=== PATIENT | male | born 1990 | race Caucasian/White ===

== ENCOUNTER 2022-11-25 08:55 | Outpatient (OUT) | payer OTHER, SELFPAY ==
--- NOTE | 2022-11-25 09:01 | US_ITS ---
The [address] [address] Patient Name: SUGAR BUSTAMANTE MRN: [id number] date: 1990 Sex: M Assigned Patient Location: US Current Patient Location: US Accession/Order Number: [id number] Exam Date: 11/25/2022 09:02 Report Date: 11/25/2022 10:09 At the request of: ADITI SON Procedure: US right upper quadrant EXAM: US right upper quadrant EXAM DATE: 11/25/2022 7:02 AM MDT COMPARISON: None available. INDICATION: Right upper quadrant pain R10.11 TECHNIQUE: Limited ultrasound of the right upper quadrant of abdomen was performed. Images were reviewed on a separate workstation. FINDINGS: Liver parenchyma is homogeneous. No focal intraparenchymal abnormality detected. Gallbladder is normally distended. No shadowing stones are seen. There is layering gallbladder sludge. No gallbladder wall thickening or pericholecystic fluid noted. Gallbladder wall measures 1 mm. Sonographic Li's sign is absent. No intrahepatic or extrahepatic biliary ductal dilatation noted. CBD measures 2 mm. Portal vein is patent with hepatopetal flow. Pancreas is partially obscured by bowel gas; visualized pancreatic parenchyma is homogeneous. Right kidney measures 11.3 x 5.7 x 6.3 cm. No hydronephrosis or nephrolithiasis noted. No free fluid noted in the right upper abdomen. US/US right upper quadrant IMPRESSION: 1. Layering gallbladder sludge. No secondary sonographic features of acute cholecystitis. Sonographic Li's sign is absent. 2. Right kidney without hydronephrosis. 3. Subvisualized pancreas. Electronically authenticated by: CLARA CAPONE Date: 11/25/2022 10:09
== END 2022-11-25 08:56 | disposition home or self-care (01) ==
PROVIDERS: PCP Family Medicine; Visit Provider Family Medicine
DX: R10.11 Right upper quadrant pain (principal)
CPT/HCPCS: 76705

== ENCOUNTER 2024-03-22 07:40 | Outpatient (OUT) | payer OTHER, SELFPAY ==
--- OUTSIDE RECORDS SUMMARY | 2024-03-22 07:42 | XMS_ITS | CCD ---
Author Organization [facility] CliniSyla Care Team Providers Care Employee Relations Administrator Name Role Phone SCOTTY, DR PENNINGTON Admitting Unavailable YRISY, DR PENNINGTON Attending Unavailable HOY, DR PENNINGTON Primary Care Unavailable HOY, DR PENNINGTON Admitting Unavailable HOY, DR PENNINGTON Attending Unavailable HOY, DR PENNINGTON Primary Care Unavailable HOY, DR PENNINGTON Primary Care Unavailable HOY, DR PENNINGTON Admitting Unavailable HOCayetano, DR PENNINGTON Attending Unavailable SCOTTY, DR PENNINGTON Consulting Unavailable SCOTTY, DR PENNINGTON Primary Care Unavailable MUKUND MERCEDES Admitting Unavailable DAREN, DR HENNY Harley Consulting Unavailable MUKUND MERCEDES Attending Unavailable PERRY MAY Consulting Unavailable MUKUND MERCEDES Consulting Unavailable MOHIT ADAMS Attending Unavailable Problems Active Problems Problem Classification Problem Date Documented Da te Episodic/Chronic Other upper respiratory infections (4 sources) Acute pharyngitis, unspecified; Translations: [ACUTE PHARYNGITIS UNSPECIFIED] Onset: 12-17-2020 Episodic Unclassified (3 sources) CONTACT W/AND (SUSP) EXPOS COVID-19; Translations: [CONTACT W/AND (SUSP) EXPOS COVID-19] Onset: 12-21-2020 Past or Other Problems Problem Classification Problem Date Documented Da te Episodic/Chronic Unclassified (1 source) CONTACT W/AND (SUSP) EXPOS COVID-19; Translations: [CONTACT W/AND (SUSP) EXPOS COVID-19] Onset: 12-16-2020 Results Test Name Value Interpretation Reference Range Facil ity Provider Letter FTMCon 03-15 Provider Letter [facility] Aditi Scotty, [address] [place] [address] Re: MUKUND DAVIS Date of : 1990 Thank you for your referral of Mukund Davis who was seen on consultation on 2021, for lipoma left posterior neck. I have enclosed my consultation note for your review. Sincerely, Elian Hall MD General Surgery Normal [facility] Ambulatory Clinical Summaryo n 02-18-2021 Ambulatory Clinical Summary {[id number]}CD:[id number] Normal [facility] Physician Referralon 022 Physician Referral [id number]:127 Normal [facility] CBC AUTO DIFFon 12-17-2020 BASO # 0.1 103/ul Normal 0.0-0.1 [facility] Comment on above: Performed By: #### C BC #### [facility] [address] [place] [address] Dr. Kacey Thao Basophils/100 WBC (Bld) 0.6 % Normal 0.2-2.0 [facility] Comment on above: Performed By: #### C BC #### [facility] [address] [place] [address] Dr. Kacey Thao EO # 0.2 103/ul Normal 0.0-0.7 [facility] Comment on above: Performed By: #### C BC #### [facility] [address] [place] [address] Dr. Kacey Thao Eosinophils/100 WBC (Bld) 1.6 % Normal 0.9-7.0 [facility] Comment on above: Performed By: #### C BC #### [facility] [address] [place] [address] Dr. Kacey Thao Erythrocyte distribution width (RBC) [Ratio] 11.8 % Normal 11.0-15.0 [facility] Comment on above: Performed By: #### C BC #### [facility] [address] [place] [address] Dr. Kacey Thao Hematocrit (Bld) [Volume fraction] 47.1 % Normal 42.0-54.0 [facility] Comment on above: Performed By: #### C BC #### [facility] [address] [place] [address] Dr. Kacey Thao Hemoglobin (Bld) [Mass/Vol] 16.6 g/dL Normal 14.0-18.0 [facility] Comment on above: Performed By: #### C BC #### [facility] [address] [place] [address] Dr. Kacey Thao IG # 0.05 10e3/ul Critically high 0.00-0.03 [facility] Comment on above: Performed By: #### C BC #### [facility] [address] [place] [address] Dr. Kacey Thao IG % 0.4 % Normal 0.0-0.5 [facility] Comment on above: Performed By: #### C BC #### [facility] [address] [place] [address] Dr. Kacey Thao LYMPH # 2.5 103/ul Normal 1.2-3.8 [facility] Comment on above: Performed By: #### C BC #### [facility] [address] [place] [address] Dr. Kacey Thao Lymphocytes/100 WBC (Bld) 18.0 % Critically low 20.5-60.0 [facility] Comment on above: Performed By: #### C BC #### [facility] [address] [place] [address] Dr. Kacey Thao MANUAL DIFF REQ NO Normal [facility] Comment on above: Performed By: #### C BC #### [facility] [address] [place] [address] Dr. Kacey Thao MCH (RBC) [Entitic mass] 30.5 pg Normal 25.9-34.0 [facility] Comment on above: Performed By: #### C BC #### [facility] [address] [place] [address] Dr. Kacey Thao MCHC (RBC) [Mass/Vol] 35.2 g/dL Normal 29.9-35.2 [facility] Comment on above: Performed By: #### C BC #### [facility] [address] [place] [address] Dr. Kacey Thao MCV (RBC) [Entitic vol] 86.6 fL Normal 80.0-94.0 [facility] Comment on above: Performed By: #### C BC #### [facility] [address] [place] [address] Dr. Kacey Thao MONO # 1.5 103/ul Critically high 0.3-0.8 [facility] Comment on above: Performed By: #### C BC #### [facility] [address] [address] [address] Kacey Thao Monocytes/100 WBC (Bld) 10.6 % Normal 1.7-12.0 [facility] Comment on above: Performed By: #### C BC #### [facility] [address] [place] [address] Dr. Kacey Thao NEUT # 9.5 103/ul Critically high 1.4-6.5 [facility] Comment on above: Performed By: #### C BC #### [facility] [address] [place] [address] Dr. Kacey Thao Neutrophils/100 WBC (Bld) 68.8 % Normal 43.0-75.0 [facility] Comment on above: Performed By: #### C BC #### [facility] [address] [place] [address] Dr. Kacey Thao Platelet mean volume (Bld) [Entitic vol] 9.0 fL Critically low 9.5-13.5 [facility] Comment on above: Performed By: #### C BC #### [facility] [address] [place] [address] Dr. Kacey Thao PLT 183 103/ul Normal 150-450 [facility] Comment on above: Performed By: #### C BC #### [facility] [address] [place], [place] [id number] Dr. Kacey Thao RBC 5.44 106/ul Normal 4.70-6.10 [facility] Comment on above: Performed By: #### C BC #### [facility] [address] [place] [address] Dr. Kacey Thao WBC 13.8 103/ul Critically high 4.0-11.0 [facility] Comment on above: Performed By: #### C BC #### [facility] [address] [place] [address] Dr. Kacey Thao CULTURE THROATon 12-17-2020 CULTURE THROAT Culture Observations : NORMAL RESPIRATORY CADENCE. Normal [facility] Comment on above: Performed By: #### S SCRN, THRTCX #### [facility] [address] [place] [address] Dr. Kacey Thao MONOon 12-17-2020 Monocytes (Bld) [#/Vol] Negative Normal NEGATIVE [facility] Comment on above: Performed By: #### M NEREYDA #### [facility] [address] [place] [address] Dr. Kacey Thao STREPT SCREENon 12-17-2020 STREP SCREEN A Negative Normal NEGATIVE [facility] Comment on above: Performed By: #### S SCRN, THRTCX #### [facility] [address] [place] [address] Dr. Kacey Thao XR NECK SOFT TISSUEon 2020 XR NECK SOFT TISSUE XR NECK SOFT TISSUE: HISTORY: Pain. COMPARISON: None available. TECHNIQUE: 2 radiographic view(s) obtained. FINDINGS: The airway appears normal in course and caliber. The prevertebral soft tissues appear normal in thickness with no radiopaque foreign body. The bones appear normal. IMPRESSION: Unremarkable radiographic appearance of the soft tissues of the neck. Electronically authenticated by: PERRY MAY Date: 2020-12-17 21:48 Normal [facility] Covid-19 PCR (CVDTBH)on 12-06 SARS-CoV-2 (COVID-19) RNA ANTHONY+probe Ql (Unsp spec) Not detected Normal NOT DETECTED [facility] Comment on above: Result Comment: This test is not yet approved or cleared by the [place] FDA. When there are no FDA-approved or cleared tests available, and other criteria are met, FDA can make tests available under an emergency access mechanism called an Emergency Use Authorization (EUA). The EUA for this test is supported by the [place] of Health and Human Service's (HHS's) declaration that circumstances exist to justify the emergency use of in vitro diagnostics for the detection and/or diagnosis of the virus that causes COVID-19. This EUA will remain in effect (meaning this test can be used) for the duration of the COVID-19 declaration justifying emergency of IVDs, unless it is terminated or revoked by FDA (after which the test may no longer be used). When diagnostic testing is negative, the possibility of a false negative should be considered in the context of a patient's recent exposures and the presence of clinical signs and symptoms consistent with SARS-CoV-2. Performed By: #### [facility] #### [facility] [address] [address] [address] Kacey Thao Ambulatory Clinical Summaryo n 06-15-2020 Ambulatory Clinical Summary {[id number]}CD:[id number] Normal [facility] General Surgery Office/Clini c Noteon 06-15-2020 General Surgery Office/Clinic Note Chief Complaint post op visit HPI Staff 7 day post op visit following excision of skin tag on back. No bleeding, drainage, or pain. Mild itching. Sutures intact. History of Present Illness 1 week s/p excision mid back lesion, doing well, denies pain or drainage; pathology consistent with intradermal nevus. Review of Systems ROS - Provider Constitutional: no fever, no sweats, no weight loss. Eyes: no glasses, no blurred vision, no visual loss. ENMT: no dentures, no hoarseness, no swallowing difficulties, no hearing loss, no ear infection(s), no nose bleeds. Cardiovascular: normal blood pressure, no chest pain, regular heartbeat, no heart murmur. Respiratory: no shortness of breath, no cough, no asthma, no wheezing. Gastrointestinal: no nausea, no vomiting, no diarrhea, no constipation, no blood in stool, no change in bowel habits, no abdominal pain, no hepatitis. Genitourinary: no kidney stones, no urine infection, no dysuria. Musculoskeletal: no pain, no weakness. Skin: no changing moles, no rash, no skin lumps. Neurologic: no seizures, no epilepsy, no headache. Psychiatric: no emotional or psychiatric problem. Heme/Lymph: no bleeding problems, no anemia, no blood clots, no transfusions. Allergy/Immunologic: no swollen lymph nodes/glands, no IV drug abuse. Other: Additional ROS info: Except as noted in the above Review of Systems and in the History of Present Illness, all other systems have been reviewed and are negative or noncontributory. Physical Exam Vitals & Measurements T: 36.3 ?C (Tympanic) skin: incision healing well, no erythema or drainage, no ecchymoses. Assessment/Plan 1. Intradermal nevus of torso (D23.5: Other benign neoplasm of skin of trunk) doing well, sutures removed; call with problems/questions. Follow-up No qualifying data available Problem List/Past Medical History Ongoing BMI 26.0-26.9,adult Chronic GERD External hemorrhoids Inflamed skin tag Insomnia Intradermal nevus of torso Nevus Nevus of right thigh Skin sensation disturbance Historical No qualifying data Procedure/Surgical History Closed fracture of fifth metacarpal (02/05/2007), Excision of anal skin tag. Medications Pantoprazole [address] Tab, Oral, Daily Allergies No Known Allergies Social History Alcohol - Denies Alcohol Use, 04/27/2020 Substance Abuse - Denies Substance Abuse, 04/27/2020 Tobacco Never (less than 100 in lifetime) Tobacco Use:. Never Smokeless Tobacco Use:., 06/15/2020 Family History Family history is negative Normal [facility] Comment on above: Result Comment: Elec tronically Signed By: ELISHA BERNAL, Elian Rahman\Date and Time Signed: 06/15/20 15:58 EDT Pathology Noteon 06-11-2020 Pathology Note [id number] .[id number]:127 Normal [facility] Ambulatory Clinical Summaryo n 06-08-2020 Ambulatory Clinical Summary {[id number]}CD:[id number] Normal [facility] General Surgery Office/Clini c Noteon 06-08-2020 General Surgery Office/Clinic Note Chief Complaint Skin tag removal. HPI Staff Present for removal of skin tag. History of Present Illness patient here for excision of irritated skin tag on back; no change since evaluation. Review of Systems ROS - Provider Constitutional: no fever, no sweats, no weight loss. Eyes: no glasses, no blurred vision, no visual loss. ENMT: no dentures, no hoarseness, no swallowing difficulties, no hearing loss, no ear infection(s), no nose bleeds. Cardiovascular: normal blood pressure, no chest pain, regular heartbeat, no heart murmur. Respiratory: no shortness of breath, no cough, no asthma, no wheezing. Gastrointestinal: no nausea, no vomiting, no diarrhea, no constipation, no blood in stool, no change in bowel habits, no abdominal pain, no hepatitis. Genitourinary: no kidney stones, no urine infection, no dysuria. Musculoskeletal: no pain, no weakness. Skin: no changing moles, no rash, yes skin lumps. Neurologic: no seizures, no epilepsy, no headache. Psychiatric: no emotional or psychiatric problem. Heme/Lymph: no bleeding problems, no anemia, no blood clots, no transfusions. Allergy/Immunologic: no swollen lymph nodes/glands, no IV drug abuse. Other: Additional ROS info: Except as noted in the above Review of Systems and in the History of Present Illness, all other systems have been reviewed and are negative or noncontributory. Physical Exam skin: 4 mm irritated skin tag right upper back Procedure patient brought to procedure room, placed in prone position, area prepped and draped; anesthetized with 1 % lidocaine, plain, lesion excised in an elliptical fashion down to subcutaneous fat; closed with interrupted 4-0 nylon sutures; tolerated well, ebl < 1 ml. Assessment/Plan 1. Inflamed skin tag (L91.8: Other hypertrophic disorders of the skin) excised under local anesthesia, closed with 4-0 nylon sutures; follow up in 1 week for suture removal. call sooner if problems/questions. Follow-up With When Contact Information ELISHA BERNAL, BRITTNEY Manriquez In [address] [place] [address]- Additional Instructions: Problem List/Past Medical History Ongoing BMI 26.0-26.9,adult Chronic GERD External hemorrhoids Inflamed skin tag Insomnia Nevus Nevus of right thigh Skin sensation disturbance Historical No qualifying data Procedure/Surgical History Closed fracture of fifth metacarpal (02/05/2007). Medications Pantoprazole [address] Tab, Oral, Daily Allergies No Known Allergies Social History Alcohol - Denies Alcohol Use, 04/27/2020 Substance Abuse - Denies Substance Abuse, 04/27/2020 Tobacco Never (less than 100 in lifetime) Tobacco Use:. Never Smokeless Tobacco Use:., 06/08/2020 Family History Family history is negative Normal [facility] Comment on above: Result Comment: Elec tronically Signed By: ELISHA BERNAL, Elian Rahman\Date and Time Signed: 06/08/20 15:49 EDT Encounters Encounter Date Encounter Type Care Provider Facility Start: 04-24-2023 End: 04-24-2023 ambulatory MOHIT ADAMS Not Available Start: 12-17-2020 End: 12-18-[address] ADITI FAJARDO Facility:[facility] Start: 12-16-2020 End: 12-16-[address] ADITI FAJARDO Facility:[facility] Start: 04-12-[address] ADITI FAJARDO Facility :[facility] Start: 04-01-[address] ADITI FAJARDO Facility :[facility] Payers Date Payer Category Payer Unknown [id number] 2.16.84 [id number] 1990 Unknown [id number] 2.16.84 [id number] 1990 Unknown [id number] 2.16.84 [id number] 1990 Unknown [id number] 2.16.84 [id number] 1990 Unknown [id number] 2.16.84 [id number] 1959 Self-pay 1959 Unknown [id number] Clinical Note 02-18-2021 Note Date & Type Note Facility 02-18-2021 Note Chief Complaint consultation for lipoma HPI Staff 30 year old male presents on consultation from Dr. Fajardo for lipoma left posterior neck. Present x 4 months. Denies pain. No change in size. History of Present Illness 30 yo male with 4 month h/o lump left posterior neck, no injury to area, no pain or tenderness, no skin changes; no change in size since he first noticed it. Review of Systems PHQ Score Initial Depression Screen Score: 0 ROS - Provider Constitutional: no fever, no sweats, no weight loss. Eyes: no glasses, no blurred vision, no visual loss. ENMT: no dentures, no hoarseness, no swallowing difficulties, no hearing loss, no ear infection(s), no nose bleeds. Cardiovascular: normal blood pressure, no chest pain, regular heartbeat, no heart murmur. Respiratory: no shortness of breath, no cough, no asthma, no wheezing. Gastrointestinal: no nausea, no vomiting, no diarrhea, no constipation, no blood in stool, no change in bowel habits, no abdominal pain, no hepatitis. Genitourinary: no kidney stones, no urine infection, no dysuria. Musculoskeletal: no pain, no weakness. Skin: no changing moles, no rash, yes skin lumps. Neurologic: no seizures, no epilepsy, no headache. Psychiatric: no emotional or psychiatric problem. Heme/Lymph: no bleeding problems, no anemia, no blood clots, no transfusions. Allergy/Immunologic: no swollen lymph nodes/glands, no IV drug abuse. Other: Additional ROS info: Except as noted in the above Review of Systems and in the History of Present Illness, all other systems have been reviewed and are negative or noncontributory. Physical Exam Vitals & Measurements T: 36.7 ?C(Temporal Artery) HR: 76(Peripheral) RR: 16 BP: 120/84 HT: 175.3 cm HT: 175.3 cm WT: 77.9 kg WT: 77.9 kg BMI: 25.35 HEENT: normal conjunctiva, sclera clear, no scleral icterus, EOM intact, PERRLA, oral mucosa moist without lesions. Neck: trachea midline, no mass, symmetric, no thyromegaly or nodules, no adenopathy Lymphatic: no cervical adenopathy, Musculoskeletal: normal gait, digits and nails without infection, nodes, cyanosis, clubbing. Skin: no rashes, no lesions, no ulcers, left posterior neck with deep, 1 cm flat nodule, nontender, non mobile; no overlying skin changes. Psychiatric/Neuro: oriented to time, place, person, judgement normal, affect appropriate for age, insight intact, no focal deficits. Tests: , review of old records completed, Assessment/Plan 1. Subcutaneous mass of neck (R22.1: Localized swelling, mass and lump, neck) likely small lipoma, asymptomatic; monitor for change in size or symptoms; call with problems/questions. Follow-up No qualifying data available Problem List/Past Medical History Ongoing BMI 25.0-25.9,adult Chronic GERD External hemorrhoids Inflamed skin tag Insomnia Intradermal nevus of torso Nevus Nevus of right thigh Skin sensation disturbance Subcutaneous mass of neck Historical No qualifying data Procedure/Surgical History Closed fracture of fifth metacarpal (02/05/2007), Excision of anal skin tag. Medications Multi Vitamins oral tablet, 1 tab(s), Oral, Daily Pantoprazole [address] Tab, Oral, Daily Allergies No Known Allergies Social History Alcohol - Denies Alcohol Use, 04/27/2020 Substance Abuse - Denies Substance Abuse, 04/27/2020 Tobacco Never (less than 100 in lifetime) Tobacco Use:. Never Smokeless Tobacco Use:., 02/18/2021 Family History Family history is negative [facility] Comment on above: Result Comment: Elec tronically Signed By: ELISHA BERNAL, Elian Harley\.aissatou\Date and Time Signed: 02/18/21 16:42 EST Summary Purpose Family History No Family History Records FoundNo Family History Records FoundNo Family History Records Found Advance Directives No Advanced Directives Records FoundNo Advanced Directives Records FoundNo Advanced Directives Records Found Additional Source Comments (unrecognized sect ion and content) No Status Records FoundNo Status Records FoundNo Status Records Found INFORMATION SOURCE (unrecogn ized section and content) DATE CREATED AUTHOR 12/23/2020 [facility] DATE CREATED AUTHOR AUTHOR'S ORGANIZ ATION 05/03/2021 [facility] DATE CREATED AUTHOR AUTHOR'S ORGANIZ ATION 04/25/2023 [facility] FOR RECORDS PERTAINING TO PATIENTS WHO ARE OR HAVE BEEN ENROLLED IN A CHEMICAL DEPENDENCY/SUBSTANCEABUSE PROGRAM, SOME INFORMATION MAY BE OMITTED. This clinical summary was aggregated from multiple sources. Caution should be exercised in using it in the provision of clinical care. This summary normalizes information from multiple sources, and as a consequence, information in this document may materially change the coding, format and clinical context of patient data. In addition, data may be omitted in some cases. CLINICAL DECISIONS SHOULD BE BASED ON THE PRIMARY CLINICAL RECORDS. [facility] [employer] [facility]. provides no warranty or guarantee of the accuracy or completeness of information in this document.
[2024-03-22 07:54] LABS: Basophils Absolute Auto 0.1 10^3/uL (0.0-0.1); Eosinophils Absolute Auto 0.2 10^3/uL (0.0-0.7); Eosinophils Percent Auto 2.8 % (0.9-7.0); Hematocrit 45.3 % (42.0-54.0); Hemoglobin 16.3 g/dL (14.0-18.0); Immature Granulocytes Abs Auto 0.01 10^3/uL (0.00-0.03); Immature Granulocytes Pct Auto 0.2 % (0.0-0.5); Lymphocytes Absolute Auto 2.3 10^3/uL (1.2-3.8); Lymphocytes Percent Auto 38.3 % (20.5-60.0); Mean Corpuscular Hemoglobin 31.5 pg (25.9-34.0); Mean Corpuscular Volume 87.5 fL (80.0-94.0); Mean Platelet Volume 9.1 fL (9.5-13.5); Monocytes Absolute Auto 0.5 10^3/uL (0.3-0.8); Monocytes Percent Auto 7.7 % (1.7-12.0); Platelet Count 180 10^3/uL (150-450); Red Blood Count 5.18 10^6/uL (4.70-6.10); Red Cell Distribution Width 11.5 % (11.0-15.0)
[2024-03-22 08:17] LABS: Estimated Average Glucose 94 mg/dL; Glycohemoglobin A1C 4.9 % (4.5-6.2)
[2024-03-22 08:24] LABS: Alanine Aminotransferase 25 U/L (16-63); Albumin Globulin Ratio 1.2; Alkaline Phosphatase 54 U/L (46-116); Anion Gap 8.2; Aspartate Amino Transferase 22 U/L (15-37); BUN Creatinine Ratio 11.3; Bilirubin Total 0.9 mg/dL (0.2-1.0); Calcium 9.2 mg/dL (8.5-10.1); Carbon Dioxide 30.9 mmol/L (21.0-32.0); Chloride 105 mmol/L (98-107); Chol HDL Ratio 3.3; Cholesterol 162 mg/dL (<=200); Estimated GFR (African America >60 (>=60 mL/min/1.73m^2); Estimated GFR (Non-African Ame >60 (>=60 mL/min/1.73m^2); Globulin 3.4 g/dL; Glucose 92 mg/dL (74-106); HDL Cholesterol 49 mg/dL (40-60); LDL Cholesterol Calculated 94.2 mg/dL; Potassium 4.1 mmol/L (3.5-5.1); Sodium 140 mmol/L (136-145); Total Protein 7.4 g/dL (6.4-8.2); Triglycerides 94 mg/dL (<=150); VLDL CHOLESTEROL 18.8 mg/dL
== END 2024-03-22 07:41 | disposition home or self-care (01) ==
LOC: LAB 07:41
PROVIDERS: PCP Family Medicine; Visit Provider Family Medicine
DX: Z00.00 Encounter for general adult medical examination without abnormal findings (principal); E78.5 Hyperlipidemia, unspecified; R53.83 Other fatigue; R73.09 Other abnormal glucose; I10 Essential (primary) hypertension
CPT/HCPCS: 36415; 80053; 80061; 83036; 85025

== ENCOUNTER 2024-11-23 09:06 | Outpatient (OUT) | payer OTHER, SELFPAY ==
--- OUTSIDE RECORDS SUMMARY | 2024-11-19 08:00 | XMS_ITS ---
Author Organization [facility] Address [address] [place] [address] Care Team Providers Care Nanotechnology Technician Name Role Phone Rayo Fajardo Primary Care Provider Yvonne Rivera Unavailable Allergies No Known Allergies REASON FOR VISIT Neck Pain Medications Medication SIG (Take, Route, Frequency, Duration) Notes Start Date End Date Status Cyclobenzaprine HCl 5 MG 1 tablet at bedtime as needed Orally Once a day; Duration: 5 days May Cause Drowsiness - only take at bedtime 11/19/2024 11/24/2024 Active predniSONE 20 MG 3 tablets once a day for 3 days, then 2 tables once a day for 3 days, then 1 tablet once daily for 3 days Orally Once a day; Duration: 9 days 11/19/2024 11/28/2024 Active Pantoprazole Sodium 40 MG Oral Active Social History Tobacco Use: Social History Observation Description Date Details (start date - stop date) Never Smoker NA - NA Tobacco Control (Standard) Question Answer Notes Tobacco use: Nonsmoker AUDIT-C (Standard) Question Answer Notes Did you have a drink contain ing alcohol in the past year? Yes How often did you have a dri nk containing alcohol in the past year? Monthly or less (1 point) How many drinks did you have on a typical day when you were drinking in the past year? 1 or 2 drinks (0 point) How often did you have six o r more drinks on one occasion in the past year? Less than monthly (1 point) Points 2 Interpretation Negative Problems Problem Type SNOMED Code ICD Code Onset Dates Problem Status W/U Status Risk Notes Problem Neck pain (70055699) Neck pain on left side (M54.2) Active confirmed Vital Signs Temperature 98.0 degrees Fahrenheit 11/20/19 Respiratory Rate 16 /min 11/19/2024 Blood pressure systolic 102 mm Hg 11/20/19 25 Blood pressure diastolic 60 mm Hg 025 Height 69 in 11/19/2024 Weight 168 lbs 11/19/2024 BMI 24.81 kg/m2 11/19/2024 Encounters Encounter Location Date Provider Diagnosis [id number] [facility] [address] [place] [address] 11/19/2024 Yvonne Yarbrough Neck pain on left side M54.2 and Pain of left scapula M89.8X1 Assessments Encounter Date Diagnosis (ICD Code) Assessment Notes Treatment Notes Treatment Clinical Notes Section Notes 11/19/2024 Neck pain on left side (ICD-10 - M54.2) Neck Pain: Care Instructions material was published, Neck Strain: Care Instructions material was published Patient instructed to avoid the use of NSAIDS (such as: Motrin, Ibuprofen, Advil, naproxen, Aleve, Celebrex, Diclofenac) while taking oral steroids. Oral steroids can make you feel jittery and/or irritable. Recommended to take in mornings with food. Discussed with patient that treatment options and xray order. Imaging will be performed outside of [facility] and patient will receive third republican bill separate from [facility]. Patient verbalized understanding and agrees to plan of care. Advised patient that clinic could also send a referral for physical therapy if needed for continuing treatment after completion of current treatment plan. Patient agreeable and verbalized understanding. All questions answered. You have strained the muscles and ligaments in your neck. A sudden, awkward movement can strain the neck. This often occurs with falls or car accidents or during certain sports. Everyday activities like working on a computer or sleeping can also cause neck strain if they force you to hold your neck in an awkward position for a long time. It is common for neck pain to get worse for a day or two after an injury, but it should start to feel better after that. You may have more pain and stiffness for several days before it gets better. This is expected. It may take a few weeks or longer for it to heal completely. Good home treatment can help you get better faster and avoid future neck problems. Follow-up care is a morel part of your treatment and safety. Be sure to make and go to all appointments, and call your doctor if you are having problems. It's also a good idea to know your test results and keep a list of the medicines you take. How can you care for yourself at home?Try heat or ice, whichever feels better. Apply it for 10 to 20 minutes at a time, several times a day. Put a thin cloth between the heat or ice and your skin. You might also try switching between heat and ice.Be safe with medicines. Read and follow all instructions on the label.If you are not taking a prescription pain medicine, ask your doctor if you can take an dnni-tyz-kuwnqic medicine.If the doctor gave you a prescription medicine for pain, take it as prescribed.Store your prescription pain medicines where no one else can get to them. When you are done using them, dispose of them quickly and safely. Your local pharmacy or hospital may have a drop-off site.Gently rub the area to relieve pain and help with blood flow. Do not massage the area if it hurts to do so.Do not do anything that makes the pain worse. Take it easy for a couple of days. You can do your usual activities if they do not hurt your neck or put it at risk for more stress or injury.Try sleeping on a special neck pillow. Place it under your neck, not under your head. Placing a tightly rolled-up towel under your neck while you sleep will also work. If you use a neck pillow or rolled towel, do not use your regular pillow at the same time.To prevent future neck pain, do exercises to stretch and strengthen your neck and back. Learn how to use good posture, safe lifting techniques, and proper body mechanics.When should you call for help?< img width= 46 alt= src= https://conten t.[employer].net/re sources/14.6/en-us/ media/interface/matt z-nlz-wbym_iis.jpg height= 46 >Call 911 anytime you think you may need emergency care. For example, call if: You are unable to move an arm or a leg at all.Call your doctor now or seek immediate medical care if: You have new or worse symptoms in your arms, legs, chest, belly, or buttocks. Symptoms may include:Numbness or tingling.Weakness.P ain.You lose bladder or bowel control.Watch closely for changes in your health, and be sure to contact your doctor if: You are not getting better as expected. 11/19/2024 Pain of left scapula (ICD-10 - M89.8X1) May coninue to use OTC topical of choice for management including Biofreeze (or generic equivalent) as needed for symptom management. Follow up with PCP if any further concerns. For any urgent/emergent signs and symptoms, please seek immediate care at nearest UC/ED for elevated level of care. 11/19/2024 Other Prednisone material was published, Cyclobenzaprine material was published Visit summary given to and discussed with patient and/or parent who verbalizes understanding and agreement with plan of care. Thank you for your visit. Please look for the satisfaction survey that you will receive via email. We look forward to receiving your feedback regarding your experience at [facility]. Plan Of Treatment Medication Medication Name Sig Start Date Stop Date Notes Cyclobenzaprine HCl 5 MG 1 tablet at bed time as needed Orally Once a day; Duration: 5 days 11/19/2024 11/24/2024 predniSONE 20 MG 3 tablets once a day for 3 days, then 2 tables once a day for 3 days, then 1 tablet once daily for 3 days Orally Once a day; Duration: 9 days 11/19/2024 11/28/2024 Pantoprazole Sodium 40 MG Oral Treatment Notes Assessment Notes Neck pain on left side Neck Pain: Care Instructions material was published, Neck Strain: Care Instructions material was published Patient instructed to avoid the use of NSAIDS (such as: Motrin, Ibuprofen, Advil, naproxen, Aleve, Celebrex, Diclofenac) while taking oral steroids. Oral steroids can make you feel jittery and/or irritable. Recommended to take in mornings with food. Discussed with patient that treatment options and xray order. Imaging will be performed outside of [facility] and patient will receive third republican bill separate from [facility]. Patient verbalized understanding and agrees to plan of care. Advised patient that clinic could also send a referral for physical therapy if needed for continuing treatment after completion of current treatment plan. Patient agreeable and verbalized understanding. All questions answered. You have strained the muscles and ligaments in your neck. A sudden, awkward movement can strain the neck. This often occurs with falls or car accidents or during certain sports. Everyday activities like working on a computer or sleeping can also cause neck strain if they force you to hold your neck in an awkward position for a long time. It is common for neck pain to get worse for a day or two after an injury, but it should start to feel better after that. You may have more pain and stiffness for several days before it gets better. This is expected. It may take a few weeks or longer for it to heal completely. Good home treatment can help you get better faster and avoid future neck problems. Follow-up care is a morel part of your treatment and safety. Be sure to make and go to all appointments, and call your doctor if you are having problems. It's also a good idea to know your test results and keep a list of the medicines you take. How can you care for yourself at home?Try heat or ice, whichever feels better. Apply it for 10 to 20 minutes at a time, several times a day. Put a thin cloth between the heat or ice and your skin. You might also try switching between heat and ice.Be safe with medicines. Read and follow all instructions on the label.If you are not taking a prescription pain medicine, ask your doctor if you can take an kskq-pip-ylxngpy medicine.If the doctor gave you a prescription medicine for pain, take it as prescribed.Store your prescription pain medicines where no one else can get to them. When you are done using them, dispose of them quickly and safely. Your local pharmacy or hospital may have a drop-off site.Gently rub the area to relieve pain and help with blood flow. Do not massage the area if it hurts to do so.Do not do anything that makes the pain worse. Take it easy for a couple of days. You can do your usual activities if they do not hurt your neck or put it at risk for more stress or injury.Try sleeping on a special neck pillow. Place it under your neck, not under your head. Placing a tightly rolled-up towel under your neck while you sleep will also work. If you use a neck pillow or rolled towel, do not use your regular pillow at the same time.To prevent future neck pain, do exercises to stretch and strengthen your neck and back. Learn how to use good posture, safe lifting techniques, and proper body mechanics.When should you call for help?< img width= 46 alt= src= https://content.[employer].net/resources/14.6/en-us/media /interface/ebqs-lab-vgfz_kjd.jpg height= 46 >Call 911 anytime you think you may need emergency care. For example, call if: You are unable to move an arm or a leg at all.Call your doctor now or seek immediate medical care if: You have new or worse symptoms in your arms, legs, chest, belly, or buttocks. Symptoms may include:Numbness or tingling.Weakness.Pain.You lose bladder or bowel control.Watch closely for changes in your health, and be sure to contact your doctor if: You are not getting better as expected. Pain of left scapula May coninue to use OTC topical of choice for management including Biofreeze (or generic equivalent) as needed for symptom management. Follow up with PCP if any further concerns. For any urgent/emergent signs and symptoms, please seek immediate care at nearest UC/ED for elevated level of care. Other Prednisone material was published, Cyclobenzaprine material was published Visit summary given to and discussed with patient and/or parent who verbalizes understanding and agreement with plan of care. Thank you for your visit. Please look for the satisfaction survey that you will receive via email. We look forward to receiving your feedback regarding your experience at [facility]. Pending Test Test Name Order Date X ray : Spines, cervical 11/19/2024 Next Appt Details Follow Up: Follow up in 4-5 days if s/s persist or worsen, Reason: Progress Notes * [place] DAVISOB: 1 (34 yo M)Acc No.[id number]:11/19/2024 Progress Notes Patient: Mukund LEMA Provider: Iris Yarbrough APRN :1990 A ge:34 Y S ex:Male Date:11/19/2024 External Visit ID:[id number] Address:[address] [place], [place] [id number] Pcp:Rayo Fajardo Subjective: * Chief Complaints: * 1 . Neck Pain. * HPI: N tonio: 34 year old male presents with c/o pain f or s alexandra last night L ocation: left side of his neck and shoulder extending down towards his left scapula, Onset: sudden, Severity: *Pain Level 7/10 *, Nature: sharp and shooting, Aggravated by: when he turns his head to the left or looking up or down, Relieved by: OTC tylenol and IBU with some relief, Associated Symptoms: states that he has had similar symptoms previously. It is usually caused by sleeping wrong in the bed. H ad previously taken RX steroid and topicals with some relief of symptoms. Patient reports that he bought a new pillow which was supposed to support his neck better. The first few days were fine but last night he must have slept on the pillow wrong. c/o stiffness. C onstitutional: c/o Received flu vaccine this season y es 10/30. * ROS: N TONIO: pain y es. s tiffness y es. d ecreased range of motion y es, d ue to discomfort. M USCULOSKELETAL: pain y es. s pasms y es. n o t rauma, d enies any trauma or injury. N EUROLOGY: no n umbness. n o t ingling. * Medical History: A eric reflux. * Surgical History: b roken finger with pin placement 2009. * Hospitalization/Major Diagno stic Procedure: D enies Past Hospitalization. * Family History: F ather: alive. M other: alive. 1 brother(s) , 2 sister(s) . 1 daughter(s) - healthy. . denies any pertinent family medical history . * Social History: G eneral*: S igns of Abuse or Neglect: no, Yvonne Sheriff Jose Miguel 11/19/2024 12:05:51 PM EDT >. Alcohol Misuse/Abuse (Audit C): Points:: 1, Interpretation:: Negative. Alcohol (routine assessment/review): occasionally. Illicit drug use: no. Occupation: Director [employer], Yvonne Sheriff Jose Miguel 11/19/2024 12:05:58 PM EDT >. D rug/Alcohol: A HARVEY-C (Standard) D id you have a drink containing alcohol in the past year? Y es, H ow often did you have a drink containing alcohol in the past year? M onthly or less (1 point), H ow many drinks did you have on a typical day when you were drinking in the past year? 1 or 2 drinks (0 point), H ow often did you have six or more drinks on one occasion in the past year? L ess than monthly (1 point), P oints 2 , I nterpretation N egative. T obacco Use: T obacco Control (Standard) T obacco use: N onsmoker. * Medications: T aking Pantoprazole Sodium 40 MG Tablet Delayed Release Oral , Discontinued Cephalexin 500 MG Tablet 1 tablet Orally twice a day , Medication List reviewed and reconciled with the patient * Allergies: N .K.D.A. Objective: * Vitals: T emp:98.0, Pulse:67, RR:16, BP:102/60, Pain (at time of visit):8/10, Ht: 69, Wt: 168, BMI:24.81. * Examination: F ocused Exam: GENERAL: a lert and oriented x 4, no acute distress, dress appropriate for the environment & temp, well-groomed, appears well. HEAD: s ymmetrical facial features, normocephalic. RESPIRATORY: b reath sounds clear throughout, respiration even and unlabored. CARDIO: S 1 & S2 single sounds, no murmurs, gallops, rubs, or clicks, RRR. MS: n o misalignment, asymmetry, defects, or masses, tenderness noted left lower shoulder area extending down towards left medial scapula, strength 5/5, full ROM of spine, & major joints of UE & LE, mild - moderate discomfort noted with neck flexion and extension, limited ROM when turning head towards the left shoulder due to discomfort, house calls nurse practitioner strength equal bilaterally. NEURO: C N II - XII grossly intact, sensation intact, judgment intact. PSYCH: f riendly attitude. GAIT s teady, without assistance. Assessment: * Assessment: 1. N tonio pain on left side - M54.2 (Primary) 2 . P ain of left scapula - M89.8X1 Plan: * Treatment: Notes: Neck Pain: Care Instructions material was published, Neck Strain: Care Instructions materialwas published Patient instructed to avoid the use of NSAIDS (such as: Motrin, Ibuprofen, Advil, naproxen, Aleve, Celebrex, Diclofenac) while taking oral steroids. Oral steroids can make you feel jittery and/or irritable. Recommended to take in mornings with food. Discussed with patient that treatment options andxray order. Imaging will be performed outside of [facility] and patient will receive third republican bill separate from [facility]. Patient verbalized understanding and agrees to plan of care. Advised patient that clinic could also send a referral for physical therapy if needed for continuing treatment after completion of current treatment plan. Patient agreeable and verbalized understanding. All questions answered. You have strained the muscles and ligaments in your neck. A sudden, awkward movement can strain theneck. This often occurs with falls or car accidents or during certain sports. Everyday activities like working on a computer or sleeping can also cause neck strain if they force you to hold your neckin an awkward position for a long time. It is common for neck pain to get worse for a day or two after an injury, but it should start to feel better after that. You may have more pain and stiffness for several days before it gets better. This is expected. It may take a few weeks or longer for it to heal completely. Good home treatment can help you get better faster and avoid future neck problems. Follow-up care is a morel part of your treatment and safety.Be sure to make and go to all appointments, and call your doctor if you are having problems. It's also a good idea to know your test results and keep a list of the medicines you take. How can you care for yourself at home? * Try heat or ice, whichever feels better. Apply it for 10 to 20 minutes at a time, several times a day. Put a thin cloth between the heat or ice and your skin. You might also try switching between heat and ice. * Be safe with medicines. Read and follow all instructions on the label.* If you are not taking a prescription pain medicine, ask your doctor if you can take an mqow-eol-ttfxooy medicine. * If the doctor gave you a prescription medicine for pain, take it as prescribed. * Store your prescription pain medicines where no one else can get to them. When you are done using them, dispose of them quickly and safely. Your local pharmacy or hospital may have a drop-off site. * Gently rub the area to relieve pain and help with blood flow. Do not massage the area if it hurts to do so. * Do not do anything that makes the pain worse. Take it easy for a couple of days. You can do your usual activities if they do not hurt your neck or put it at risk for more stress or injury. * Try sleeping on a special neck pillow. Place it under your neck, not under your head. Placing a tightly rolled-up towel under your neck while you sleep will also work. If you use a neck pillow or rolled towel, do not use your regular pillow at the same time. * To prevent future neck pain, do exercises to stretch and strengthen your neck and back. Learn how to use good posture, safe lifting techniques, and proper body mechanics. When should you call for help? < img width= 46 alt= src= https://content.[employer].net/resources/14.6/en-us/media/interface/viqm-bmn-odx p_icn.jpg height= 46 >Call 911anytime you think you may need emergency care. For example, call if: * You are unable to move an arm or a leg at all. Call your doctor nowor seek immediate medical care if: * You have new or worse symptoms in your arms, legs, chest, belly, or buttocks. Symptoms may include:* Numbness or tingling. * Weakness. * Pain. * You lose bladder or bowel control. Watch closely for changes in your health, and be sure to contact your doctor if: * You are not getting better as expected. ??2.?Pain of left scapula? Notes: May coninue to use OTC topical of choice for management including Biofreeze (or generic equivalent) as needed for symptom management. Follow up with PCP if any further concerns. For any urgent/emergent signs and symptoms, please seek immediate care at nearest UC/ED for elevated level of care.?? 3.?Others? Continue Pantoprazole Sodium Tablet Delayed Release, 40 MG, Oral.?? Notes: Prednisone material was published, Cyclobenzaprine material was published Visit summary given to and discussed with patient and/or parent who verbalizes understanding and agreement with plan of care. Thank you for your visit. Please look for the satisfaction survey that you will receive via email. We look forward to receiving your feedback regarding your experience at [facility].?? * Procedure Codes: Meghan BAE Sending to Nursing Student for Code Review * Preventive Medicine: Immunizations: Raudel patel 10/30, Yvonne Sheriff 11/19/2024 12:13:06 PM EDT >. * Follow Up: F ollow up in 4-5 days if s/s persist or worsen * Billing Information: * Visit Code: * Procedure Codes: GUARD MANAGER Sending to Nursing Student for Code Review. Care Plan Details* * Sign off status: Completed true * Provider: Iris Yarbrough APRN Date: Generated for Glenys sanchez/David/Jessica on: 08:10 AM CDT History and Physical Notes * HPI (History of Present Illness) Category Sub-Category Detail Notes Category Not es Constitutional Received flu vaccine this season yes 10/30 Neck pain Location: left s raimundo of his neck and shoulder extending down towards his left scapula, Onset: sudden, Severity: *Pain Level 7/10 *, Nature: sharp and shooting, Aggravated by: when he turns his head to the left or looking up or down, Relieved by: OTC tylenol and IBU with some relief, Associated Symptoms: states that he has had similar symptoms previously. It is usually caused by sleeping wrong in the bed. Had previously taken RX steroid and topicals with some relief of symptoms. Patient reports that he bought a new pillow which was supposed to support his neck better. The first few days were fine but last night he must have slept on the pillow wrong stiffness Examination Category Sub-Category Detail Notes Category Not es Focused Exam HEAD: symmetrical facial features, normocephalic RESPIRATORY: breath sounds clear throughout, respiration even and unlabored NEURO: CN II - XII grossly intact, sensation intact, judgment intact GENERAL: alert and oriented x 4, no acute distress, dress appropriate for the environment & temp, well-groomed, appears well PSYCH: friendly attitude CARDIO: S1 & S2 single sound s, no murmurs, gallops, rubs, or clicks, RRR MS: no misalignment, asy mmetry, defects, or masses, tenderness noted left lower shoulder area extending down towards left medial scapula, strength 5/5, full ROM of spine, & major joints of UE & LE, mild - moderate discomfort noted with neck flexion and extension, limited ROM when turning head towards the left shoulder due to discomfort, house calls nurse practitioner strength equal bilaterally GAIT steady, without assi stance
--- NOTE | 2024-11-23 | XR_ITS ---
[address] [address] Patient Name: SUGAR BUSTAMANTE MRN: [id number] date: 1990 Sex: M Assigned Patient Location: [facility] Current Patient Location: [facility] Accession/Order Number: [id number] Exam Date: 11/23/2024 09:18 Report Date: 11/23/2024 14:53 At the request of: NON-STAFF PHYSICIAN MD Procedure: XR cervical spine 2-3V XR cervical spine 2-3V 11/23/2024 9:22 AM SIGNS AND SYMPTOMS: ^Neck Pain On Left Side, M54.2 PROTOCOLS: Frontal and lateral radiographs of the cervical spine COMPARISON: None FINDINGS: The bones are in anatomic alignment. There is preservation of the vertebral body heights and intervertebral disc spaces. The atlantoaxial joint is preserved. There is no fracture or destructive lesion. XR/XR cervical spine 2-3V IMPRESSION: Negative cervical spine. Impression dictated by: Pj Ye M.D. 11/23/2024 2:53 PM Dictation Location: [facility] Electronically authenticated by: [id number] Y Date: 11/23/2024 14:53
--- OUTSIDE RECORDS SUMMARY | 2024-11-23 09:11 | XMS_ITS | Clinical Summary ---
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 Phone Unavailable Primary Care Provider Unavailabl e Source Comments The following information is NOT included in Care Everywhere downloads:Psychiatric notes, ECG results, Cardiac Rehab notes, Pulmonary Function notes, data from [employer] (includes but not limited toPregnancy data,audiograms, eye exams, pre-surgical evaluation notes, well-child exam data).[facility] Allergies No known active allergies Active Problems Problem Noted Date Diagnosed Date Closed fracture of unspecified phalanx or phalan ges of hand 01/17/2008 Social History Tobacco Use Types Packs/Day Years Used Date Smoking Tobacco: Never Assessed Sex and Gender Information Value Date Recorded Sex Assigned at Not on file Legal Sex Male 12:44 PM EST Gender Identity Not on file Sexual Orientation Not on file Last Filed Vital Signs Vital Sign Reading Time Taken Comments Blood Pressure 133/67 01/17/2008 1:28 PM EST Pulse 68 01/17/2008 1:28 PM EST Temperature 36.7 C (98.1 F) 01/17/2008 1:28 PM EST Respiratory Rate 16 01/17/2008 1:28 PM EST Oxygen Saturation - - Inhaled Oxygen Concentration - - Weight 68.9 kg (151 lb 12.8 oz) 01/17/2008 1:28 PM EST Height - - Body Mass Index - - Plan of Treatment Health Maintenance Due Date Last Done Comments HIV Test 2005 Hepatitis C Antibody 2008 Tdap Booster 2008 Hepatitis A (HAV) Vaccine (optional start 19+ years) 2009 Hepatitis B (HBV) Vaccine (1 of 3 - 19+ 3-dose series) 2009 Tetanus (Td or Tdap) Booster 2009 HPV Vaccine (optional start 27-45 years) 2017 COVID-19 Vaccine (2023-2 5 season) 2024 Influenza Vaccine (#1) 2024 Shingles (RZV) Vaccine (1 of 2) 2040 Pneumococcal Vaccine(s) Aged Out No l onger eligible based on patient's age to complete this topic Insurance [facility]
--- OUTSIDE RECORDS SUMMARY | 2024-11-23 09:11 | XMS_ITS | Patient Health Record ---
Author Organization [facility] Address [address] [place] [address] Care Team Providers Care Post Adoption Coordinator Name Role Phone Rayo Fajardo Primary Care Provider Yvonne Rivera Unavailable Allergies No Known Allergies Reason For Referral No Information Medications Medication SIG (Take, Route, Frequency, Duration) [...] Active Pantoprazole Sodium 40 MG Oral Active Immunizations Vaccine Route Administration Date Status Comme nts Flu Vaccine (Given in Past) Unspecified Unknown 11/03/2024 Administered MMR Unknown 03/04/1992 Administered MMR Unknown 09/05/1996 Administered z2024 Fluzone, 6mo & older, PFS (0.5mL Admin) IM Intramuscular 11/13/2023 Administered Social History Tobacco Use: Social History Observation [...] Problem Status W/U Status Risk Notes Problem 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) Active confirmed Problem Acid reflux (449663303) Acid reflux (K21.9) Active confirmed Problem Neck pain (93689065) Neck pain on left side (M54.2) Active confirmed Vital Signs Temperature 98.0 degrees Fahrenheit 11/19/2024 Respiratory Rate 16 /min 11/19/2024 Oximetry 100 11/03/2024 Blood pressure diastolic 60 mm Hg 11/19/2024 Height 69 in 11/19/2024 Blood pressure systolic 102 mm Hg 11/19/2024 Weight 168 lbs 11/19/2024 BMI 24.81 kg/m2 11/19/2024 Encounters Encounter Location Date Provider Diagnosis [id number] [facility] [address] [place] [address] 11/03/2024 Yvonne Yarbrough Toxicodendron dermatitis L25.5 and Acute cellulitis L03.90 [id number] [facility] [address] [place] [address] 11/19/2024 Yvonne Yarbrough Neck pain on left side M54.2 and Pain of left scapula M89.8X1 Assessments Encounter Date Diagnosis (ICD Code) Assessment Notes Treatment Notes Treatment Clinical Notes Section Notes 11/03/2024 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 Follow up as needed. Poison roseanna, poison oak, and poison sumac are plants that can cause a skin rash upon contact. The red, itchy rash often shows up in lines or streaks. It may cause fluid-filled blisters or large, raised hives. The rash is caused by an allergic reaction to an oil in these plants. The rash may occur when you touch the plant or when you touch objects that have come in contact with these plants. Common examples include clothing, pet fur, sporting gear, or gardening tools. You can't catch or spread the rash by touching the rash or the blister fluid. The plant oil will already have been absorbed or washed off the skin. The rash may seem to be spreading because it's still developing from earlier contact or because you have touched something that still has the plant oil on it. Follow-up care is a morel part of your treatment and safety. Be sure to make and go to all appointments, and call your doctor if you are having problems. It's also a good idea to know your test results and keep a list of the medicines you take. How can you care for yourself at home?If your doctor prescribed a cream, use it as directed. If your doctor prescribed medicine, take it exactly as prescribed. Call your doctor if you think you are having a problem with your medicine.Use cold, wet cloths to reduce itching.Take warm or cool baths with oatmeal bath products, such as Aveeno.Keep cool, and stay out of the sun.Leave the rash open to the air.Wash all clothing or other things that may have come in contact with the plant oil.Avoid most lotions and ointments until the rash heals. Calamine lotion may help relieve symptoms of a plant rash. Use it 3 or 4 times a day.To prevent exposureIf you know you will be working around poison roseanna, oak, or sumac: Use a cream or lotion to help prevent the plant oil from getting on your skin. These products are available over the counter.Apply the product less than 1 hour before contact with the plant, in a thick, complete layer.Wash it off thoroughly within 4 hours or as soon as possible after contact with plants. The product only delays the oil from getting into your skin.Be sure to wash your hands before and after you use the restroom.When should you call for help?< img width= 46 alt= src= https://conten t.healthsikes.net/re sources/14.6/en-us/ media/interface/matt o-srm-pbml_yaq.jpg height= 46 >Call your doctor now or seek immediate medical care if: Your rash gets worse, and you start to feel bad and have a fever, a stiff neck, nausea, and vomiting.You have signs of infection, such as:Increased pain, swelling, warmth, or redness.Red streaks leading from the rash.Pus draining from the rash.A fever.Watch closely for changes in your health, and be sure to contact your doctor if: You have new blisters or bruises, or the rash spreads and looks like a sunburn.The rash gets worse, or it comes back after nearly disappearing.You think a medicine you are using is making your rash worse.Your rash does not clear up after 1 to 2 weeks of home treatment.You have joint aches or body aches with your rash. 11/03/2024 Acute cellulitis (ICD-10 - L03.90) Cellulitis: Care Instructions material was published For any urgent/emergent signs and symptoms or worsening concerns, please seek immediate care at nearest UC/ED for elevated level of care. If no improvement of symptoms, please follow up with PCP or return to clinic for further evaluation and management. Cellulitis is a skin infection caused by bacteria, most often strep or staph. It often occurs after a break in the skin from a scrape, cut, bite, or puncture, or after a rash. Cellulitis may be treated without doing tests to find out what caused it. But your doctor may do tests, if needed, to look for a specific bacteria, like methicillin-resista nt Staphylococcus aureus (MRSA). The doctor has checked you carefully, but problems can develop later. If you notice any problems or new symptoms, get medical treatment right away. Follow-up care is a morel part of your treatment and safety. Be sure to make and go to all appointments, and call your doctor if you are having problems. It's also a good idea to know your test results and keep a list of the medicines you take. How can you care for yourself at home?Take your antibiotics as directed. Do not stop taking them just because you feel better. You need to take the full course of antibiotics.Prop up the infected area on pillows to reduce pain and swelling. Try to keep the area above the level of your heart as often as you can.If your doctor told you how to care for your wound, follow your doctor's instructions. If you did not get instructions, follow this general advice:Wash the wound with clean water 2 times a day. Don't use hydrogen peroxide or alcohol, which can slow healing.You may cover the wound with a thin layer of petroleum jelly, such as Vaseline, and a nonstick bandage.Apply more petroleum jelly and replace the bandage as needed.Be safe with medicines. Take pain medicines exactly as directed.If the doctor gave you a prescription medicine for pain, take it as prescribed.If you are not taking a prescription pain medicine, ask your doctor if you can take an usio-xql-rcjvajc medicine.To prevent cellulitis in the futureTry to prevent cuts, scrapes, or other injuries to your skin. Cellulitis most often occurs where there is a break in the skin.If you get a scrape, cut, mild burn, or bite, wash the wound with clean water as soon as you can to help avoid infection. Don't use hydrogen peroxide or alcohol, which can slow healing.If you have swelling in your legs (edema), support stockings and good skin care may help prevent leg sores and cellulitis.Take care of your feet, especially if you have diabetes or other conditions that increase the risk of infection. Wear shoes and socks. Do not go barefoot. If you have athlete's foot or other skin problems on your feet, talk to your doctor about how to treat them.When should you call for help?< img width= 46 alt= src= https://conten t.[employer]zz[employer]ikes.net/re sources/14.6/en-us/ media/interface/matt o-nos-xtin_dbx.jpg height= 46 >Call your doctor now or seek immediate medical care if: You have signs that your infection is getting worse, such as:Increased pain, swelling, warmth, or redness.Red streaks leading from the area.Pus draining from the area.A fever.You get a rash.Watch closely for changes in your health, and be sure to contact your doctor if: You do not get better as expected. 11/19/2024 Neck pain on left side (ICD-10 [...] order. Imaging will be performed outside of [facility] and patient will receive third libertarian bill separate from [facility]. Patient verbalized understanding and agrees to plan [...] your doctor if you can take an mdfg-rsj-uqphvsw medicine.If the doctor gave you a prescription [...] help?< img width= 46 alt= src= https://conten t.[employer].net/re sources/14.6/en-us/ media/interface/matt u-ldd-bqkt_sdq.jpg height= 46 >Call 911 anytime you think [...] nearest UC/ED for elevated level of care. 11/03/2024 Other Cephalexin material was published Visit summary given to and discussed with patient and/or parent who verbalizes understanding and agreement with plan of care. Thank you for your visit. Please look for the satisfaction survey that you will receive via email. We look forward to receiving your feedback regarding your experience at [facility]. 11/19/2024 Other Prednisone material was published, Cyclobenzaprine material was published Visit summary given to and discussed with patient and/or parent who verbalizes understanding and agreement with plan of care. Thank you for your visit. Please look for the satisfaction survey that you will receive via email. We look forward to receiving your feedback regarding your experience at [facility]. Plan Of Treatment Pending Test Test Name Order Date X ray : Spines, cervical 11/19/2024 Insurance Providers Payer Name Payer Address Payer Phone Subscriber Number Group Number Insured Name Patient Relationship to Insured Coverage Start Date Coverage End Date Medical [facility] [address] [place] [address] [id number] Mukund Davis Self - patient is the insured Medical (General) History Medical History History ICD Code Acid reflux K21.9 Surgical History Surgery Date(Month/Year) broken finger with pin placement 2009
--- OUTSIDE RECORDS SUMMARY | 2024-11-23 09:11 | XMS_ITS | CCD ---
Author Organization [facility] Care Team Providers Care Office Technology Instructor Name Role Phone HUY, DR PENNINGTON Admitting Unavailable YRISY, DR PENNINGTON Attending Unavailable HOY, DR PENNINGTON Primary Care Unavailable HOY, DR PENNINGTON Admitting Unavailable HOY, DR PENNINGTON Attending Unavailable HOY, DR PENNINGTON Primary Care Unavailable HOY, DR PENNINGTON Primary Care Unavailable HOY, DR PENNINGTON Admitting Unavailable HOMaryann, DR PENNINGTON Attending Unavailable HUY, DR PENNINGTON Consulting Unavailable HUY, DR PENNINGTON Primary Care Unavailable SUGAR MERCEDES Admitting Unavailable DAREN, DR HENNY Harley Consulting Unavailable SUGAR MECREDES Attending Unavailable PERRY MAY Consulting Unavailable SUGAR MERCEDES Consulting Unavailable MOHIT ADAMS Attending Unavailable [...] ity Provider Letter FTMCon 03-15 Provider Letter [facility] [place]iti Homaryann, [address] [place] [address] Re: SUGAR DAVIS Date of : 1990 Thank you for your referral of Sugar Davis who was seen on consultation on 2021, for lipoma left posterior neck. I have enclosed my consultation note for your review. Sincerely, Elian Hall MD General Surgery Normal [facility] Ambulatory Clinical Summaryo n 02-18-2021 Ambulatory Clinical Summary {[id number]}CD:[id number] Normal [facility] Physician Referralon 022 Physician Referral [id number]:127 Normal [facility] CBC AUTO DIFFon 12-17-2020 BASO # 0.1 103/ul Normal 0.0-0.1 [facility] Comment on above: Performed By: #### C BC #### [facility] [address] [place] [address] Dr. Kacey Thao Basophils/100 WBC (Bld) 0.6 % Normal 0.2-2.0 [facility] Comment on above: Performed By: #### C BC #### [facility] [address] [place] [address] Dr. Kacey Thao EO # 0.2 103/ul Normal 0.0-0.7 [facility] Comment on above: Performed By: #### C BC #### [facility] [address] [place] [address] Dr. Kacey Thao Eosinophils/100 WBC (Bld) 1.6 % Normal 0.9-7.0 [facility] Comment on above: Performed By: #### C BC #### [facility] [address] [place] [address] Dr. Kacey Thao Erythrocyte distribution width (RBC) [Ratio] 11.8 % Normal 11.0-15.0 [facility] Comment on above: Performed By: #### C BC #### [facility] [address] [place] [address] Dr. Kacey Thao Hematocrit (Bld) [Volume fraction] 47.1 % Normal 42.0-54.0 [facility] Comment on above: Performed By: #### C BC #### [facility] [address] [place] [address] Dr. Kacey Thao Hemoglobin (Bld) [Mass/Vol] 16.6 g/dL Normal 14.0-18.0 [facility] Comment on above: Performed By: #### C BC #### [facility] [address] [place] [address] Dr. Kacey Thao IG # 0.05 10e3/ul Critically high 0.00-0.03 [facility] Comment on above: Performed By: #### C BC #### [facility] [address] [place] [address] Dr. Kacey Thao IG % 0.4 % Normal 0.0-0.5 [facility] Comment on above: Performed By: #### C BC #### [facility] [address] [place] [address] Dr. Kacey Thao LYMPH # 2.5 103/ul Normal 1.2-3.8 [facility] Comment on above: Performed By: #### C BC #### [facility] [address] [place] [address] Dr. Kacey Thao Lymphocytes/100 WBC (Bld) 18.0 % Critically low 20.5-60.0 [facility] Comment on above: Performed By: #### C BC #### [facility] [address] [place] [address] Dr. Kacey Thao MANUAL DIFF REQ NO Normal [facility] Comment on above: Performed By: #### C BC #### [facility] [address] [place] [address] Dr. Kacey Thao MCH (RBC) [Entitic mass] 30.5 pg Normal 25.9-34.0 [facility] Comment on above: Performed By: #### C BC #### [facility] [address] [place] [address] Dr. Kacey Thao MCHC (RBC) [Mass/Vol] 35.2 g/dL Normal 29.9-35.2 [facility] Comment on above: Performed By: #### C BC #### [facility] [address] [place] [address] Dr. Kacey Thao MCV (RBC) [Entitic vol] 86.6 fL Normal 80.0-94.0 [facility] Comment on above: Performed By: #### C BC #### [facility] [address] [place] [address] Dr. Kacey Thao MONO # 1.5 103/ul Critically high 0.3-0.8 [facility] Comment on above: Performed By: #### C BC #### [facility] [address] [address] [address] Kacey Thao Monocytes/100 WBC (Bld) 10.6 % Normal 1.7-12.0 [facility] Comment on above: Performed By: #### C BC #### [facility] [address] [place] [address] Dr. Kacey Thao NEUT # 9.5 103/ul Critically high 1.4-6.5 [facility] Comment on above: Performed By: #### C BC #### [facility] [address] [place] [address] Dr. Kacey Thao Neutrophils/100 WBC (Bld) 68.8 % Normal 43.0-75.0 [facility] Comment on above: Performed By: #### C BC #### [facility] [address] [place] [address] Dr. Kacey Thao Platelet mean volume (Bld) [Entitic vol] 9.0 fL Critically low 9.5-13.5 [facility] Comment on above: Performed By: #### C BC #### [facility] [address] [place] [address] Dr. Kacey Thao PLT 183 103/ul Normal 150-450 [facility] Comment on above: Performed By: #### C BC #### [facility] [address] [place], [place] [address] Dr. Kacey Thao RBC 5.44 106/ul Normal 4.70-6.10 [facility] Comment on above: Performed By: #### C BC #### [facility] [address] [place] [address] Dr. Kacey Thao WBC 13.8 103/ul Critically high 4.0-11.0 [facility] Comment on above: Performed By: #### C BC #### [facility] [address] [place] [address] Dr. Kacey Thao CULTURE THROATon 12-17-2020 CULTURE THROAT Culture Observations : NORMAL RESPIRATORY CADENCE. Normal [facility] Comment on above: Performed By: #### S SCRN, THRTCX #### [facility] [address] [place] [address] Dr. Kacey Thao MONOon 12-17-2020 Monocytes (Bld) [#/Vol] Negative Normal NEGATIVE [facility] Comment on above: Performed By: #### M NEREYDA #### [facility] [address] [place] [address] Dr. Kacey Thao STREPT SCREENon 12-17-2020 STREP SCREEN A Negative Normal NEGATIVE [facility] Comment on above: Performed By: #### S SCRN, THRTCX #### [facility] [address] [place] [address] Dr. Kacey Thao XR NECK SOFT TISSUEon [...] PERRY MAY Date: 2020-12-17 21:48 Normal [facility] Covid-19 PCR (CVDTBH)on 12-06 SARS-CoV-2 (COVID-19) RNA ANTHONY+probe Ql (Unsp spec) Not detected Normal NOT DETECTED [facility] Comment on above: Result Comment: This test is not yet approved or cleared by the [place] FDA. When there are no FDA-approved or cleared tests available, and other criteria are met, FDA can make tests available under an emergency access mechanism called an Emergency Use Authorization (EUA). The EUA for this test is supported by the Retirement Plan Counselor of Health and Human Service's (HHS's) declaration [...] consistent with SARS-CoV-2. Performed By: #### [facility] #### [facility] [address] [address] [address] Kacey Thao Ambulatory Clinical Summaryo n 06-15-2020 Ambulatory Clinical Summary {[id number]}CD:[id number] Normal [facility] General Surgery Office/Clini c Noteon 06-15-2020 [...] Family History Family history is negative Normal [facility] Comment on above: Result Comment: Elec tronically Signed By: ELISHA BERNAL, Elian Rahman\Date and Time Signed: 06/15/20 15:58 EDT Pathology Noteon 06-11-2020 Pathology Note [id number] .[id number]:127 Normal [facility] Ambulatory Clinical Summaryo n 06-08-2020 Ambulatory Clinical Summary {[id number]}CD:[id number] Normal [facility] General Surgery Office/Clini c Noteon 06-08-2020 [...] Manriquez In [address] [place] [address]- Additional Instructions: Problem List/Past Medical [...] Family History Family history is negative Normal [facility] Comment on above: Result Comment: Elec [...] :H1 Payers Date Payer Category Payer Unknown [id number] 2.16.84 [id number] 1990 Unknown [id number] 2.16.84 [id number] 1990 Unknown [id number] 2.16.84 [id number] 1990 Unknown [id number] 2.16.84 [id number] 1990 Unknown [id number] 2.16.84 [id number] 1959 Self-pay 1959 Unknown [id number] Clinical Note 02-18-2021 Note Date & Type [...] 02/18/2021 Family History Family history is negative [facility] Comment on above: Result Comment: Elec [...] DATE CREATED AUTHOR 12/23/2020 [facility] DATE CREATED AUTHOR AUTHOR'S ORGANIZ ATION 05/03/2021 [facility] DATE CREATED AUTHOR AUTHOR'S ORGANIZ ATION 04/25/2023 [facility] dical Specialists [facility] FOR RECORDS PERTAINING TO PATIENTS WHO ARE [...] BE BASED ON THE PRIMARY CLINICAL RECORDS. [facility]. provides no warranty or guarantee of the accuracy or completeness of information in this document.
--- OUTSIDE RECORDS SUMMARY | 2024-11-23 09:11 | XMS_ITS | Clinical Summary ---
Author Organization [facility] Address [address] [place] [address] Care Team Providers [employer] Name Role Phone Unavailable Primary Care Provider Unavailabl e Allergies No known active allergies Medications pantoprazole (ProtoNix) 40 MG EC tablet Take 40 mg by mouth Daily Active Social History Tobacco Use Types Packs/Day Years Used Date Smoking Tobacco: Never Assessed Sex and Gender Information Value Date Recorded Sex Assigned at Not on file Legal Sex Male 7:17 PM EDT Gender Identity Not on file Sexual Orientation Not on file Last Filed Vital Signs Vital Sign Reading Time Taken Comments Blood Pressure 120/80 04/24/2023 3:04 PM EDT Pulse 84 04/24/2023 3:04 PM EDT Temperature 36.4 C (97.6 F) 04/24/2023 3:04 PM EDT Respiratory Rate - - Oxygen Saturation 99% 04/24/2023 3:04 PM EDT Inhaled Oxygen Concentration - - Weight 75.3 kg (166 lb) 04/24/2023 3:04 PM EDT Height 170.2 cm (5' 7 ) 2020 12:00 PM EDT Body Mass Index 26 2020 12:00 PM EDT Plan of Treatment Not on file Insurance [employer]
== END 2024-11-23 09:07 | disposition home or self-care (01) ==
PROVIDERS: PCP Family Medicine
DX: M54.2 Cervicalgia (principal)
CPT/HCPCS: 72040